=== PATIENT | female | born 1930 | race Hispanic/Latino ===

== ENCOUNTER 2018-05-13 07:00 | Day surgery (SDC) | payer MEDICARE ==
[2018-05-10 13:42] LABS: BASOPHILS % (AUTO) 0.3 % (0.0-5.0); EOSINOPHILS % (AUTO) 0.8 % (0.0-8.0); HEMATOCRIT 41.1 % (36-48); LYMPHOCYTES % (AUTO) 22.3 % (21.0-51.0); MEAN CORPUSCULAR HEMOGLOBIN 30.3 pg (27.0-33.0); MEAN CORPUSCULAR HGB CONC 33.2 g/dL (32.0-36.0); MEAN CORPUSCULAR VOLUME 91.3 fL (79-99); MONOCYTES % (AUTO) 5.1 % (3.0-13.0); NEUTROPHILS % (AUTO) 71.5 % (40.0-77.0); PLATELET COUNT (AUTO) 193 K/uL (130-400); RED CELL DISTRIBUTION WIDTH 13.9 % (11.0-15.5); WHITE BLOOD COUNT (AUTO) 8.6 K/uL (4.8-10.8)
[2018-05-10 13:47] VITALS: BP 176/89
[2018-05-10 13:52] LABS: POTASSIUM 4.3 mmol/L (3.5-5.1)
[2018-05-10 13:56] LABS: INR 1.06 (0.85-1.15); PARTIAL THROMBOPLASTIN TIME 31.9 SEC (26.3-35.5); PROTHROMBIN TIME 11.1 SEC (9.6-11.6)
[2018-05-10 14:08] LABS: APPEARANCE,URINE Clear (CLEAR); BILIRUBIN,URINE Negative (NEGATIVE); COLOR,URINE Dark Yellow (YELLOW); GLUCOSE, URINE (UA) Negative (NEGATIVE); KETONES,URINE 15 mg/dL (NEGATIVE); LEUKOCYTE ESTERASE ,URINE Small (NEGATIVE); NITRATE,URINE Negative (NEGATIVE); OCCULT BLOOD,URINE Negative (NEGATIVE); PROTEIN,URINE Negative (NEGATIVE); UROBILINOGEN,URINE 0.2 mg/dL (0.2-1.0)
[2018-05-10 14:12] LABS: BACTERIA,URINE Rare /HPF (None Seen); RBC,URINE 0-1 /HPF (0-1); SQUAMOUS EPITHELIAL CELL,UR Rare /HPF (0-2)
[~2018-05-13] VITALS: Ht 149.9 cm; Wt 63.0 kg
[2018-05-13] VITALS (17 sets, daily range): BP systolic 136–177; BP diastolic 54–79
[~2018-05-13 07:00] MED LIST: CITA-107 PO; CYCL30DR OU; DONE10TA43 PO; MEMA10TA20 PO; OXYB10TA PO; PILO5TAB PO; PRESER VISION PO; SUPER B-COMPLEX PO
[2018-05-13] MEDS ORDERED: LACTATED RINGERS 1000ML 1,000 ML IV ONE (08:12)
[2018-05-13] MEDS: CEFAZOLIN SODIUM 1 GM VIAL ONE ×2 (08:26→10:30)
[2018-05-13] MEDS: GENTAMICIN 80 MG/NS 100 ML PB 100 ML IV SCH ×2 (08:26→09:00)
[2018-05-13] MEDS ORDERED: LIDOCAINE PF 2% 5ML ABBOJECT ONE (09:23)
[2018-05-13] MEDS ORDERED: PROPOFOL 10 MG/ML 20ML VIAL IV ONE (09:23)
[2018-05-13] MEDS ORDERED: FENTANYL CITRATE PF 50 MCG/1 ML 2ML VIAL ONE (09:25)
[2018-05-13] MEDS ORDERED: EPHEDRINE SULFATE 50 MG/ML AMPULE ONE (10:27)
[2018-05-13] MEDS ORDERED: GLYCOPYRROLATE 1 MG/5 ML SYRINGE ONE (10:28)
[2018-05-13] MEDS ORDERED: LIDOCAINE 1%-EPI 1:100,000 20 ML VIAL IJ ONE (10:54)
[2018-05-13] MEDS ORDERED: ESTROGENS,CONJUGATED 0.625 MG/GM 42.5 GM VAG CRM VG ONE (10:54)
[2018-05-13] MEDS ORDERED: NEOMY SULF/POLYMYXIN B SULFATE 1 ML AMPUL IR ONE (10:54)
== END 2018-05-13 14:20 | disposition home or self-care (01) ==
LOC: DAH 07:00
PROVIDERS: ATTEND Urology
DX: N39.3 Stress incontinence (female) (male) (principal); Z98.890 Other specified postprocedural states; J44.9 Chronic obstructive pulmonary disease, unspecified; K21.9 Gastro-esophageal reflux disease without esophagitis; M81.0 Age-related osteoporosis without current pathological fracture; F03.90 Unspecified dementia, unspecified severity, without behavioral disturbance, psychotic disturbance, mood disturbance, and anxiety
CPT/HCPCS: 36415; 57288; 71045; 80048; 81001; 85025; 85610; 85730; 87088; 87186; 93005; 96365; A4215; A4218; A4344; A4600; A4930; C1771; J0690; J1580; J2001; J2704; J3010; J3490 ×4; J7120 ×2